=== PATIENT | male | born 1950 | race Caucasian/White ===

== ENCOUNTER → 2018-05-12 07:09 | Outpatient (CLI) | payer MEDICARE, OTHER, SELFPAY | PROVIDERS: PCP Family Medicine; Visit Provider Internal Medicine | DX: Z95.0 Presence of cardiac pacemaker; E11.9 Type 2 diabetes mellitus without complications; E78.49 Other hyperlipidemia; N18.3 Chronic kidney disease, stage 3 (moderate); I51.9 Heart disease, unspecified | CPT/HCPCS: 93306 ==

== ENCOUNTER → 2020-07-19 11:51 | Outpatient (CLI) | payer MEDICARE, OTHER, SELFPAY ==
--- NOTE | 2020-07-19 11:51 | NM_ITS ---
APPROVED REPORT Exam: Nuclear Stress Test Indication: short of breath Patient Location: Outpatient Stress Tech: Demetrice Elnkson [place] Tech:DEJAN Wallace RT(R)(N) Ht: 5 ft 9 in Wt: 270 lbs HR: 64 bpm BP: 110/66 mmHg BSA: 2.35 m2 BMI: 39.8 Procedure: Patient received a 0.4 mg of intravenous Lexiscan, resting heart rate 64 bpm, resting blood pressure 110/66 mmHg, with Lexiscan maximum heart rate achived was 61 bpm which is Less than 85 % of the maximum predicted heart rate and blood pressure was 112/51 mmHg. With Lexiscan, patient denied any complaint of chest pain. Electrocardiogram Resting electrocardiogram showed AV sequentially paced rhythm with left bundle branch morphology, with Lexiscan intermittent sinus rhythm with left bundle branch block seen, less than 1.[address] segment depression noted from the baseline EKG. The EKG portion of the Lexiscan is nondiagnostic. Cardiac Stress and Resting SPECT Images: Cardiac Stress and Resting SPECT images were obtained using technetium 99m Myoview 32.3 mCi stress and 10.27 mCi at rest. Gated SPECT for analysis of segmental wall motion and calculation of the ejection fraction also done. Prone images were also obtained. Cardiac stress and resting SPECT images show mild fixed defect anteroseptally with normal contractility on the gated SPECT is likely secondary to left bundle branch block, no reversible ischemia seen, computer derived ejection fraction is 56% with abnormal septal motion, right ventricle is normal size and contractility. Conclusion: 1. The EKG portion of the Lexiscan is nondiagnostic. 2. No scintigraphic evidence of reversible ischemia seen, computer derived ejection fraction is 56% with abnormal septal motion as described above, right ventricle is normal size and contractility. 3. Likely normal Lexiscan Myoview study. Electronically signed by : Tay Lewis, 07/19/2020 15:10:00
--- NOTE | 2020-07-19 14:19 | CA_ITS ---
APPROVED REPORT Exam: Pharmacologic Technologist: Lili Ivan, Ht: 5 ft 9 in Wt: 273 lbs BSA: 2.36 m2 HR: 64 bpm BP: 110/66 mmHg Medical History Medications: Amlodipine,,,,, Lisinopril,,,,, Asa,,,,, Atorvastatin,,,,, GlYBURIDE,,,,, ActOS,,,,, CarvediOLOL,,,,, BicaALUTAMIDE,,,,, Stress Test Details Test: LEXISCAN HR Resting HR: 69 bpm Max Heart Rate (APMHR): 152 bpm Max HR Achieved: 71 bpm Target HR (85% APMHR): 129 bpm % of APMHR: 46 Recovery HR: 61 bpm BP Resting BP: 110/66 mmHg Max BP: 124/56 mmHg Recovery BP: 118.0/65.0 mmHg ECG Resting ECG: Ventricular paced rhythm Clinical Exercise duration: 04:02 min Highest Stage Achieved: Exercise capacity: 1.0 METs Stress ECG Conclusion Symptoms: Mild SOA, No CP Arrythmias/Ectopy: Rare PVC ST-T Changes: No significant changes Conclusion: Unremarkable Lexiscan stress. Myoview images reported separately Electronically signed by : Tay Lewis, 07/19/2020 15:10:25
== END ==
PROVIDERS: PCP Family Medicine; Visit Provider Physician Assistant
DX: R06.00 Dyspnea, unspecified (principal)
CPT/HCPCS: 78452; 93017; A9502; J2785

== ENCOUNTER 2021-04-10 08:56 | Day surgery (SDC) | payer MEDICARE, OTHER, SELFPAY ==
[2021-04-10] VITALS (7 sets, daily range): BP systolic 99–140; BP diastolic 37–98; PULSE 60–65; RESP 16; TEMP 36.8–36.9; O2SAT 96–98; BMI 38.8
--- NOTE | 2021-04-10 | IR_ITS ---
APPROVED REPORT Patient Location: Outpatient [facility] Specialist: DEJAN Alejandre RT (R) PROCEDURES 1. Pocket Revision 2. Removal of old Pacemaker 3. Implant of Permanent Pacemaker INDICATION End of Battery Life Informed consent was obtained prior to the procedure. COMPLICATIONS NONE Estimated Blood Loss: LESS THAN 10 ML TECHNIQUE 1% lidocaine with epinephrine used to anesthetize the left anterior aspect of the chest. Scalpel was used to make the initial cutaneous incision and then used to dissect down to the existing pacemaker generator. The generator was removed from the existing pocket. Digital manipulation was required along with intermittent usage of scalpel in order to revise the pocket. The leads were removed from the old generator. The new generator was screwed to the existing leads and secured into place. Electronic interrogation proved acceptable thresholds and voltage within the lead. Antibiotics were used to flush the pocket and the pacemaker was secured using 3-0 silk into the newly revised pocket. Monocryl was used to close the subcutaneous tissue and then sharan were placed on the cutaneous area in order to approximate the incision. Patient was transferred to the postop holding area in stable condition. INTERROGATION Generator Model number: Tyres on the [employer] MRI DR IS-1 L311 Generator Serial number: [id number] Atrial lead model number: 5086 Atrial lead serial number: [id number] P-wave: 2.0 MV Impedence: 350 OHLMS Threshold: 2.0 @ 0.4 MS Left Ventricular lead model number: 5086 Left Ventricular lead serial number: [id number] R-wave: Impedence: Threshold: Right Ventricular lead model number: Right Ventricular lead serial number: R-wave: Impedence: Threshold: Mode: DDDR Base/Max Track: 130 PPM No diaphragmatic stimulation at 10 volts. IMPRESSION 1. Successful Pocket Revision 2. Successful Removal of old Pacemaker 3. Successful Implant of Permanent Pacemaker PLAN 1. Post Op Wound Care Electronically signed by : Emory Encinas MD 04/15/2021 11:16:49
[2021-04-10 09:46] LABS: Basophils # 0.1 K/mm3 (0-0.2); Basophils % 0.9 % (0.1-2.0); Eosinophils # 0.2 K/mm3 (0.0-0.4); Eosinophils % 4.4 % (0.1-12.0); Hematocrit 36.9 % (42.0-52.0); Hemoglobin 12.6 g/dL (14.1-18.0); Lymphocytes # 0.9 K/mm3 (0.7-4.5); Lymphocytes % 17.4 % (10-50); Mean Corpuscular HGB Conc 34.1 g/dL (31.8-35.4); Mean Corpuscular Hemoglobin 29.3 pg (27.0-31.2); Mean Platelet Volume 8.5 fl (7.4-10.4); Monocytes # 0.3 K/mm3 (0.1-1.0); Monocytes % 5.8 % (1.7-9.3); Neutrophils # 3.6 K/mm3 (1.8-7.8); Neutrophils % 71.5 % (37.0-80.0); Platelet Count 215 K/mm3 (142-424); Red Blood Count 4.29 M/mm3 (4.60-6.20); Red Cell Distribution Width 13.7 % (11.5-17.5); White Blood Count 5.1 K/mm3 (4.8-10.8)
[2021-04-10 10:01] LABS: Blood Urea Nitrogen 28 mg/dl (9-20); Calcium 9.2 mg/dl (8.4-10.2); Carbon Dioxide 26 mmol/L (22.0-30.0); Chloride 106 mmol/L (98-107); Creatinine Clearance Estimated 75 mL/min (50-200); Estimated Glomerular Filt Rate 43 ml/min (>60); GFR (African American) 52 ML/MIN (>60); Glucose 133 mg/dl (74-100); Sodium 139 mmol/L (136-145)
== END 2021-04-10 11:45 | disposition home or self-care (01) ==
LOC: CATHLAB 08:58
PROVIDERS: PCP Family Medicine; Visit Provider Internal Medicine
PROC: 0JPT0PZ Removal of Cardiac Rhythm Related Device from Trunk Subcutaneous Tissue and Fascia, Open Approach (ICD-10-PCS; principal; 2021-04-10 10:00)
DX: Z45.010 Encounter for checking and testing of cardiac pacemaker pulse generator [battery] (principal); E11.22 Type 2 diabetes mellitus with diabetic chronic kidney disease; I12.9 Hypertensive chronic kidney disease with stage 1 through stage 4 chronic kidney disease, or unspecified chronic kidney disease; N18.30 Chronic kidney disease, stage 3 unspecified; E78.5 Hyperlipidemia, unspecified; I25.10 Atherosclerotic heart disease of native coronary artery without angina pectoris; F17.210 Nicotine dependence, cigarettes, uncomplicated
CPT/HCPCS: 33228; 80048; 85025; C1785

== ENCOUNTER → 2021-06-03 11:23 | Outpatient (CLI) | payer MEDICARE, OTHER, SELFPAY ==
--- NOTE | 2021-06-03 11:32 | XR_ITS ---
FINAL REPORT CLINICAL HISTORY: recent ppm implant FINDINGS: Two views of the chest were obtained. A left subclavian pacemaker is present. The heart size and pulmonary vascularity are within normal limits. The mediastinum is normal. No acute pulmonary abnormality is identified. There is no definite pneumothorax. The bony thorax is intact. IMPRESSION: No active cardiopulmonary disease. Reviewed, Interpreted and Dictated by Adam Zelaya III, MD Transcribed by Tennille Torres Authenticated by Adam Zelaya III, MD on 06/03/2021 01:24:30 PM [facility]
== END ==
PROVIDERS: PCP Family Medicine; Visit Provider Urology
DX: C61 Malignant neoplasm of prostate (principal); E78.2 Mixed hyperlipidemia; I10 Essential (primary) hypertension; I11.9 Hypertensive heart disease without heart failure; R06.00 Dyspnea, unspecified; R07.89 Other chest pain; R42 Dizziness and giddiness; Z92.3 Personal history of irradiation; Z95.0 Presence of cardiac pacemaker
CPT/HCPCS: 71046

== ENCOUNTER → 2021-06-10 11:54 | Outpatient (CLI) | payer MEDICARE, OTHER, SELFPAY ==
--- NOTE | 2021-06-10 11:55 | CA_ITS ---
FINAL REPORT TECHNIQUE: Color Doppler, duplex Doppler and parker scale sonography of the bilateral neck arterial vasculature was performed. Velocities were measured in the carotid arteries. Stenosis evaluation based on the validated velocity criteria. CLINICAL HISTORY: Dizziness, smoker, HTN, HLD, DM R ICA & L ICA <20% Bilateral thyroid cysts noted FINDINGS: The peak systolic velocity of the right common carotid artery is 62 cm/s. The peak systolic velocity of the right internal carotid artery is 52 cm/s and end diastolic velocity 21 cm/s. A small amount of plaque is present. The right external carotid artery is patent. The right vertebral artery is patent with antegrade flow. The peak systolic velocity of the left common carotid artery is 76 cm/s. The peak systolic velocity of the left internal carotid artery is 85 cm/s and end diastolic velocity 41 cm/s. A small amount of plaque is present. The left external carotid artery is patent.The left vertebral artery is patent with antegrade flow. Thyroid nodules are noted. IMPRESSION: Less than 50% bilateral carotid stenoses. If indicated, CTA or MRA could further evaluate. Thyroid nodules. If indicated, dedicated thyroid ultrasound. Reviewed, Interpreted and Dictated by Adam Zelaya III, MD Transcribed by Tarik Ott Authenticated by Adam Zelaya III, MD on 06/10/2021 03:10:[address] [facility]
== END ==
PROVIDERS: PCP Family Medicine; Visit Provider Urology
DX: C61 Malignant neoplasm of prostate (principal); E78.2 Mixed hyperlipidemia; I11.9 Hypertensive heart disease without heart failure; R06.00 Dyspnea, unspecified; R07.89 Other chest pain; R42 Dizziness and giddiness; Z92.3 Personal history of irradiation; Z95.0 Presence of cardiac pacemaker
CPT/HCPCS: 93880

== ENCOUNTER → 2021-07-16 14:30 | Outpatient (CLI) | payer MEDICARE, OTHER, SELFPAY ==
--- NOTE | 2021-07-16 14:39 | US_ITS ---
FINAL REPORT CLINICAL HISTORY: thyroid nodule seen on CT scan done in May 2021 COMPARISON: Carotid ultrasound dated June 10, 2021 FINDINGS: THYROID ULTRASOUND The right lobe of the thyroid measures 4.0 x 1.7 x 1.6 cm. The left lobe of the thyroid measures 3.1 x 1.8 x 1.8 cm. There is a 1.5 cm solid and isoechoic nodule consistent with a TI-RADS 3 in the lower pole of the left thyroid. The parenchyma shows normal echogenicity. There are tiny scattered subcentimeter nodules throughout both lobes. IMPRESSION: 1.5 cm TI-RADS 3 nodule in the left lobe of the thyroid. Recommend continued follow-up. Reviewed, Interpreted and Dictated by Wilbert Pavon MD Transcribed by Tarik Ott Authenticated by Wilbert Pavon MD on 07/16/2021 04:49:22 PM [facility]
== END ==
PROVIDERS: PCP Physician Assistant; Visit Provider Student in an Organized Health Care Education/Training Program
DX: E04.1 Nontoxic single thyroid nodule (principal)
CPT/HCPCS: 76536

== ENCOUNTER → 2022-04-09 13:23 | Outpatient (CLI) | payer MEDICARE, OTHER, SELFPAY ==
--- NOTE | 2022-04-09 13:30 | US_ITS ---
FINAL REPORT CLINICAL HISTORY: thyroid nodules COMPARISON: June 2021 FINDINGS: THYROID ULTRASOUND The right lobe of the thyroid measures 4.3 x 2.1 x 1.3 cm. The left lobe of the thyroid measures 4.2 x 2.0 x 1.7 cm. There are several TI-RADS 4 less than 5 mm nodules bilaterally. There is a 6 mm TI-RADS 4 nodule in the lower pole of the right thyroid. There is a 1.7 x 1.4 cm predominantly hyperechoic TI-RADS 3 nodule in the mid left thyroid. This is slightly larger as compared to prior. IMPRESSION: Slight increase in a TI-RADS 3 left thyroid nodule. Per TI-RADS criteria continued follow-up is recommended. However given increase in size and patient gender needle sampling could be considered. Reviewed, Interpreted and Dictated by Wilbert Pavon MD Transcribed by Tarik Ott Authenticated and [facility]
== END ==
PROVIDERS: PCP Physician Assistant; Visit Provider Student in an Organized Health Care Education/Training Program
DX: E04.1 Nontoxic single thyroid nodule (principal)
CPT/HCPCS: 76536

== ENCOUNTER → 2022-04-15 15:49 | Outpatient (CLI) | payer MEDICARE, OTHER, SELFPAY | PROVIDERS: PCP Physician Assistant; Visit Provider Internal Medicine | DX: I50.23 Acute on chronic systolic (congestive) heart failure (principal) | CPT/HCPCS: 93306 ==

== ENCOUNTER → 2022-10-08 13:21 | Outpatient (CLI) | payer MEDICARE, OTHER, SELFPAY ==
--- NOTE | 2022-10-08 13:22 | CA_ITS ---
FINAL REPORT TECHNIQUE: Color Doppler, duplex Doppler and parker scale sonography of the bilateral neck arterial vasculature was performed. Velocities were measured in the carotid arteries. Stenosis evaluation based on the validated velocity criteria. CLINICAL HISTORY: PERRI FINDINGS: The peak systolic velocity of the right common carotid artery is 59 cm/s. The peak systolic velocity of the right internal carotid artery is 61 cm/s and end diastolic velocity 29 cm/s. The ICA/CCA ratio is 1.0. A small amount of plaque is present. The right external carotid artery is patent. The right vertebral artery is patent with antegrade flow. The peak systolic velocity of the left common carotid artery is 62 cm/s. The peak systolic velocity of the left internal carotid artery is 63 cm/s and end diastolic velocity 30 cm/s. The ICA/CCA ratio is 1.1. A small amount of plaque is present. The left external carotid artery is patent.The left vertebral artery is patent with antegrade flow. IMPRESSION: Less than 50% bilateral carotid stenoses. Bilateral patent vertebral arteries with antegrade flow. If indicated, CTA or MRA could further evaluate. Reviewed, Interpreted and Dictated by Adam Zelaya III, MD Transcribed by Maryanne Urena Authenticated and . [facility]
== END ==
PROVIDERS: PCP Physician Assistant; Visit Provider Nurse Practitioner Family
DX: E78.2 Mixed hyperlipidemia (principal); I65.23 Occlusion and stenosis of bilateral carotid arteries; R06.00 Dyspnea, unspecified; R53.83 Other fatigue; Z95.0 Presence of cardiac pacemaker; N18.30 Chronic kidney disease, stage 3 unspecified
CPT/HCPCS: 93880